=== PATIENT | female | born 1985 | race Caucasian/White ===

== ENCOUNTER 2023-05-05 08:29 | Outpatient (AMB) | payer OTHER, SELFPAY ==
--- NOTE | 2023-05-05 09:28 | MHC.OFFWIV ---
Intake Vital Signs 05/05/23 09:33 Height 5 ft Weight 150 lb BMI 29.3 BP 126/70 Blood Pressure Location Lt brachial Position Sitting Pulse 70 Pulse Source Pulse Oximeter Temp 98.0 F Temp Source Temporal Artery Scan Pulse Oximetry (%) 98 Intake Visit Reasons: [employer]AGE UN[employer] Sore throat/ear/?Sinus infection (masked) Intake Note: pt is here for c/o sore throat, bodyaches, sinus issues Patient Tobacco Use Status: Never used Tobacco Allergies No Known Allergies Allergy (Verified 05/05/23 09:34) Do you need a note to return to daycare/school/sports/work: Yes HPI HPI Comments History of Present Illness Details 37-year-old female that presents for sinus congestion sore throat and left-sided ear pain. This has been present for approximately 2 days. Denies fevers or chills chest pain or shortness of breath. PFSH Social History Patient Tobacco Use Status: Never used Tobacco Review of Systems Const All systems reviewed & are unremarkable except as noted in HPI and below ENT Reports otalgia and Reports sore throat Resp Reports cough Physical Exam Vital Signs: Last Vital Signs Temp 98.0 F 05/05/23 09:33 Pulse 70 05/05/23 09:33 BP 126/70 05/05/23 09:33 Pulse Ox 98 05/05/23 09:33 BMI result Body Mass Index 29.3 Const General: healthy appearing, comfortable, no acute distress and alert Orientation/consciousness: patient oriented x3 Limitations: no limitations HEENT Other: No tragal tenderness. Left TM with erythema and bulging. Right TM shows mild effusion no erythema. Posterior pharynx without erythema tonsils 1+ bilaterally uvula midline no trismus Head: Yes normal to inspection Ears: hearing grossly normal bilaterally Resp Effort & Inspection: normal respiratory effort and able to speak in complete sentences Cardio Rate: regular rate Skin General skin exam: no rashes or lesions noted Neuro General: patient oriented x3 Extrem General: Yes normal to inspection Results AMB Rapid Strep AMB Rapid Strep Negative Last Edit by Randolph Goodwin CMA on 05/05/23 09:50 Results Reviewed Results Reviewed: Laboratory Last Values Strep Scn [facility] Negative 05/05/23 09:49 Assessment & Plan Assessment & Plan (1) Otitis media: Code(s): H66.90 - Otitis media, unspecified, unspecified ear Qualifiers: Otitis media type: unspecified Chronicity: acute Qualified Code(s): H66.90 - Otitis media, unspecified, unspecified ear Plan: VSs. Exam notable for No tragal tenderness. Left TM with erythema and bulging. Right TM shows mild effusion no erythema. Posterior pharynx without erythema tonsils 1+ bilaterally uvula midline no trismus. rapid strep negative signs symptoms consistent otitis media. Prescribed amoxicillin. Discharge instructions, follow up and treatment are discussed with patient in my usual fashion. Alternatives in treatment are also discussed. The patient will return for worsening symptoms or as needed. Advised that any labs/imaging ordered will be followed up on and contact made if further treatment needed. Counseled that patient's condition may require further evaluation and/or treatment. Symptoms of concern for worsening disorder discussed in detail in my customary manner. Patient does verbalize understanding of the plan, there are no apparent barriers to communication. The patient is given the opportunity to ask questions and have them answered to his/her satisfaction Orders: Orders AMB Rapid Strep Screen Today Z13.9 - Encounter for screening, unspecified Medications: New amoxicillin 875 mg PO BID 5 days 10 tabs 0RF Patient Instructions: you were seen and evaluated in the urgent care for your ear pain. Exam is consistent with a ear infection. You have been prescribed [*]. please take as directed. Experiencing no worsening symptoms such as fever not controlled by Tylenol Motrin, worsening ear pain, or any concerning symptoms I mentioned above please return to present to the emergency department. Coding Level of Care Code Est Pt Level 3 (32751) Diagnoses Acute otitis media, unspecified otitis media type H66.90 Otitis media type: unspecified Chronicity: acute
[2023-05-05 09:33] VITALS: BP 126/70; PULSE 70; TEMP 36.7; O2SAT 98; BMI 29.3
== END 2023-05-05 10:04 | disposition home or self-care (01) ==
PROVIDERS: Visit Provider Physician Assistant
DX: H66.92 Otitis media, unspecified, left ear (principal); J02.9 Acute pharyngitis, unspecified
CPT/HCPCS: 87880; 99213